=== PATIENT | female | born 1955 | race Hispanic/Latino ===

== ENCOUNTER 2017-10-01 12:28 | Emergency (ER) | payer OTHER ==
[2017-10-01 12:29] VITALS: BMI 21.4
[2017-10-01 12:34] VITALS: BP 112/79; PULSE 80; RESP 16; TEMP 97.8; O2SAT 99
--- NOTE | 2017-10-01 13:12 | RAD ---
PROCEDURE: Right Foot Radiographs. HISTORY: Trauma/fall. COMPARISON: 01/25/2009 FINDINGS: BONES: Radiographic findings consistent with hallux valgus repair. No evidence of orthopedic hardware failure. JOINTS: Normal. SOFT TISSUES: Normal. OTHER FINDINGS: None. IMPRESSION: No acute findings related to/accounting for the clinical presentation. No significant interval change compared to the prior examination(s).
--- NOTE | 2017-10-01 13:22 | ED PDOC ---
Lower Extremity Pain/Injury Time Seen by Provider: 10/01/17 12:38 Chief Complaint (Nursing): Lower Extremity Problem/Injury Chief Complaint (Provider): Right Foot Pain History Per: Patient History/Exam Limitations: no limitations Onset/Duration Of Symptoms: Mins, Hrs Current Symptoms Are (Timing): Still Present Severity: None Additional Complaint(s): 62 year old female presents to the emergency department to e evaluated for right foot pain. Patient states that around 530 this morning she was walking when her slipper got caught on the carpet causing her to trip and fall. She states that she tripped down approximately 10 stairs and twisted her right foot. Patient reports that she takes tramadol daily for chronic back pain and took 50mg for pain prior to arrival. She further states that she had a stress fracture to the same foot last year prompting her visit to the emergency department. Denies loss of consciousness, abdominal pain, vomiting. PMD: Chris Rivera - Ankle/Foot Description Of Injury: Fell - Risk Factors DVT Risk Factors: Pos: None Past Medical History Vital Signs: Last Vital Signs Temp 97.8 F 10/01/17 12:31 Pulse 80 10/01/17 12:31 Resp 16 10/01/17 12:31 BP 112/79 10/01/17 12:31 Pulse Ox 99 10/01/17 12:31 - Medical History PMH: Back Problems (herniated discs) - Surgical History Other surgeries: Breast Augmentation; Bunionectomy - Family History Family History: States: Unknown Family Hx - Living Arrangements Living Arrangements: With Family - Social History Current smoker - smoking cessation education provided: Yes (3 cigarettes daily) Alcohol: None Drugs: Denies - Home Medications Home Medications: Ambulatory Orders Medication Instructions Recorded Metaxalone [Skelaxin] 800 mg PO TID PRN #20 tablet 01/24/16 Naproxen 500 mg PO BID PRN #20 tab 10/01/17 - Allergies Allergies/Adverse Reactions: Allergies Allergy/AdvReac Type Severity Reaction Status Date / Time No Known Allergies Allergy Verified 10/01/17 12:31 Review of Systems Gastrointestinal: Negative for: Nausea, Vomiting, Abdominal Pain Musculoskeletal: Positive for: Foot Pain (right) Neurological: Negative for: Headache Physical Exam - Reviewed Nursing Documentation Reviewed: Yes - Physical Exam Appears: Positive for: Non-toxic, No Acute Distress Skin: Positive for: Normal Color, Warm, Dry. Negative for: Rash Cardiovascular/Chest: Positive for: Regular Rate, Rhythm, Chest Non Tender. Negative for: Tachycardia Respiratory: Positive for: Normal Breath Sounds. Negative for: Rales, Rhonchi, Wheezing, Respiratory Distress Back: Positive for: Normal Inspection. Negative for: L CVA Tenderness, R CVA Tenderness, Vertebral Tenderness Extremity: Positive for: Normal ROM (Full ROM of right ankle), Tenderness ( tenderness to distal aspect of right 4th and 5th metatarsals.), Other (toes neurovascularly intact; ambulatory with limp). Negative for: Calf Tenderness, Deformity (no deformity to right foot), Swelling (no swelling or ecchymosis to right foot) Neurologic/Psych: Positive for: Alert, Oriented, Gait (ambulatory with limp) - ECG O2 Sat by Pulse Oximetry: 99 (RA) Pulse Ox Interpretation: Normal Medical Decision Making Medical Decision Makin Initial Impression 62 year old female presenting with acute foot pain status post fall Initial plan: * Ibuprofen 600 mg PO RAD right foot * Reevaluation 1310 PROCEDURE: Right Foot Radiographs. HISTORY: Trauma/fall. COMPARISON: 01/25/2009 FINDINGS: BONES: Radiographic findings consistent with hallux valgus repair. No evidence of orthopedic hardware failure. JOINTS: Normal. SOFT TISSUES: Normal. OTHER FINDINGS: None. IMPRESSION: No acute findings related to/accounting for the clinical presentation. No significant interval change compared to the prior examination(s). Documented by Claudia Franks acting as a scribe for Enriqueta Ospina PA-C. All medical record entries made by the Scribe were at my direction and personally dictated by me. I have reviewed the chart and agree that the record accurately reflects my personal performance of the history, physical exam, medical decision making, and the department course for this patient. I have also personally directed, reviewed, and agree with the discharge instructions and disposition. Disposition - Disposition
== END 2017-10-01 13:35 | disposition home or self-care (01) ==
LOC: H.ER 12:28
DX: S99.921A Unspecified injury of right foot, initial encounter (principal); W10.9XXA Fall (on) (from) unspecified stairs and steps, initial encounter; F17.210 Nicotine dependence, cigarettes, uncomplicated